=== PATIENT | female | born 1945 | race Caucasian/White ===

== ENCOUNTER 2020-11-19 07:57 | Outpatient (CLI) | payer MEDICARE ==
[2020-11-20 00:15] LABS: SARS-CoV-2 PCR by NAA Not Detected (NotDetected)
== END 2020-11-19 07:58 | disposition home or self-care (01) ==
LOC: LABBT 07:57
PROVIDERS: ATTEND Internal Medicine Gastroenterology
DX: Z01.812 Encounter for preprocedural laboratory examination (principal); K63.5 Polyp of colon; Z80.0 Family history of malignant neoplasm of digestive organs; Z20.822 Contact with and (suspected) exposure to COVID-19
CPT/HCPCS: U0003; U0005; 87635

== ENCOUNTER 2020-11-24 07:38 | Observation (INO) | payer MEDICARE ==
--- NOTE | 2020-11-24 05:48 | HP ---
HISTORY OF PRESENT ILLNESS: The patient is a 75-year-old female with a past history of colon polyp and family history of colon cancer. She is at high risk for colon cancer due to family history. Colonoscopy in was negative. Her bowel movements are constipated. No hematochezia. She comes for a colonoscopy because of family history of colon cancer and personal history of colon polyp. ALLERGIES: NONE. SOCIAL HISTORY: Does not smoke or drink alcohol. MEDICAL ILLNESSES: 1. Acid reflux. 2. Migraines. 3. Colon polyps. 4. Diverticular disease, past history of diverticulitis. PHYSICAL EXAMINATION: VITAL SIGNS: Pulse is 70, blood pressure is . HEENT: Conjunctivae clear. CARDIOVASCULAR: . LUNGS: Clear to auscultation. ABDOMEN: Soft. Abdomen is nontender. No organomegaly. No masses. Bowel sounds are normal. ADMITTING DIAGNOSIS: A 75-year-old female with family history of colon cancer and history of colon polyp. PLAN: Colonoscopy. Job ID: [id number]
[2020-11-24] MEDS ORDERED: PROPOFOL 200 MG/20 ML VIAL ONE (09:39)
--- NOTE | 2020-11-24 12:24 | OP ---
DATE OF PROCEDURE: 11/24/2020 OPERATIVE PROCEDURE: Colonoscopy with biopsy. PREOPERATIVE DIAGNOSES: A 75-year-old female with colon polyp, family history of colon cancer. She also complains of constipation, which has been progressive. The patient is undergoing colonoscopy. POSTOPERATIVE DIAGNOSES: 1. Very redundant, tortuous colon. 2. Sigmoid diverticular disease. 3. 6 mm sessile ascending colon polyp. DESCRIPTION OF PROCEDURE: The patient was placed on her left lateral position and was given sedation by Anesthesia Department. A rectal exam was done before scope was advanced into the rectum. No lesions felt on rectal exam. A Pentax video colonoscope was introduced into the rectum and advanced up to the cecum. The patient had a very redundant, tortuous, floppy sigmoid colon. Abdominal compression was used to advance the scope all the way to the cecum. The mucosa appears normal throughout the colon with normal vascular pattern. The appendiceal orifice, ileocecal valve, and cecum, no lesion. A 6 mm of sessile ascending colon polyp removed with biopsy forceps. The hepatic flexure, transverse colon, splenic flexure, descending colon, no lesion seen. The sigmoid colon showed scattered diverticula. The rectum showed hemorrhoids. DISCHARGE PLANNING: This is a 75-year-old female with history of colon polyp and family history of colon cancer. The patient has had increasing constipation in spite of taking high-fiber diet and Metamucil. The patient came for a colonoscopy and was found to have sigmoid diverticula and an ascending colon polyp. The patient had a very floppy, tortuous colon. DISCHARGE RECOMMENDATIONS: 1. The patient is advised to call me if she develops abdominal pain, hematochezia, or fever. 2. We will plan for abdominal CAT scan in the near future. 3. We will discuss with the patient about possible having sigmoid colectomy. Job ID: [id number]
--- NOTE | 2020-11-24 13:26 | CT ---
CT Abdomen Pelvis WO Con 11/24/2020 12:40 PM HISTORY: Abdominal pain post colonoscopy. Greater left-sided abdominal pain. COMPARISON: 07/31/2019 Technique: Multiple contiguous axial CT images are obtained through the abdomen and pelvis without IV contrast. Coronal reformats are provided. FINDINGS: This examination is limited for the evaluation of solid organs and vascular structures due to the lac k of intravenous contrast. Lower Chest: Minimal linear scarring versus atelectasis is present at the posteromedial right lung ba se. Lung bases are otherwise clear. Liver: Subcentimeter hypodense lesion is seen in the right hepatic lobe which is unchanged in size co mpared to prior study in 2019 as well as a study on 10/06/2015. Gallbladder: Surgically absent. Pancreas: Grossly normal nonenhanced CT appearance. Spleen: Grossly normal nonenhanced CT appearance. Adrenals: Grossly normal nonenhanced CT appearance. Kidneys and ureters: No renal or ureteral calculi are seen bilaterally. Urinary bladder: Urinary bladder has a normal CT appearance. Reproductive Organs: Evidence of hysterectomy. Lymph Nodes: No definite enlarged lymph nodes are seen. Bowel: Evidence of colonic diverticulosis. There is suggested thickening involving the park of the r ectum. There is adjacent inflammatory stranding in a perirectal location. No free fluid or free intraperitoneal gas is seen in this region. No dilated loops of small bowel are seen. A small hiatal hernia is identified. Appendix: Not visualized on this exam due to multiple adjacent unopacified structures. Peritoneum: There are punctate gas densities adjacent to the sigmoid colon which appear to demonstrat e adjacent rim of soft tissue density, and these gas densities are most likely attributable to tiny colonic diverticuli. No definitive free intraperitoneal gas is seen, and there is no free fluid or fl uid collection identified in the abdomen or pelvis. Vessels: Vascular calcifications are seen in the abdominal aorta and iliac arteries.. Abdominal Wall: within normal limits. Bones: Degenerative changes are seen in the spine. There is stable grade 1 anterolisthesis of L4 on L 5. Stable sclerotic density in the left iliac bone is seen with imaging characteristics most compatible with a prominent bone island. IMPRESSION: 1. Thickening of the park of the rectum with adjacent perirectal inflammatory stranding. No free int raperitoneal gas or free fluid is seen in this region. Findings could be related to proctitis. No definitive findings are seen to suggest bowel perforation at this time. However, close interval follo w-up is recommended to ensure resolution of the perirectal inflammatory stranding. 2. Colonic diverticulosis. 3. Small hiatal hernia. 4. Vascular calcifications. 5. Above findings were reviewed and discussed with Dr. Han on 11/24/2020 at 1306 hours.
[2020-11-24] MEDS ORDERED: cefTRIAXone\\ROCEPHIN 2 GM in Sodium Chloride 0.9% 100 ML IVPB SCH (13:30)
[2020-11-24] MEDS: metroNIDAZOLE 500 MG in Premix Bag 1 BAG IVPB SCH ×2 (15:36→21:10)
[2020-11-24 17:01] LABS: #Basophils 0.1 thou/uL (0.0-0.2); #Eosinphils 0.1 thou/uL (0.0-0.7); #Lymphocytes 1.8 thou/uL (1.20-3.40); #Monocytes 0.7 thou/uL (0.11-0.59); #Neutrophils 9.6 thou/uL (1.40-6.50); %Basophils 0.8 % (0.0-1.0); %Eosinophils 0.6 % (0.0-10.0); %Lymphocytes 14.6 % (21.0-51.0); %Monocytes 5.8 % (0.0-10.0); %Neutrophils 78.2 % (42.0-75.0); Hemoglobin 13.8 g/dL (12.0-16.0); Mean Corpuscular HGB CONC 33.2 g/dL (32.0-36.0); Mean Corpuscular Hemoglobin 31.3 pg (27.0-31.0); Mean Corpuscular Volume 94.3 fL (78.0-98.0); Mean Platelet Volume 8.1 fL (7.4-10.4); Platelet Count 335 thou/uL (130-400); RBC Distribution Width 11.4 % (11.5-14.5); White Blood Cell (WBC) Count 12.3 thou/uL (4.8-10.8)
[2020-11-24 17:21] LABS: Anion Gap 13 mmol/L (10-20); BUN (Urea Nitrogen) 8 mg/dL (9.8-20.1); Calc. Creatinine Clearance 73 mL/min (70-130); Calcium 8.9 mg/dL (7.8-10.44); Carbon Dioxide 27 mmol/L (23-31); Chloride 105 mmol/L (98-107); Glucose 94 mg/dL (83-110); Potassium 4.6 mmol/L (3.5-5.1); Sodium 140 mmol/L (136-145)
[2020-11-24 17:54] VITALS: BMI 25.9
[2020-11-24] MEDS ORDERED: HYDROcodone/Acetaminophen 5/325 mg Tablet PO PRN ×2 (18:07→18:18)
[2020-11-24] MEDS ORDERED: Ondansetron ODT 4 MG TAB PO PRN (18:19)
[2020-11-24] MEDS ORDERED: Calcium Carbonate 500 MG ChewTAB PO PRN (18:19)
[2020-11-24] MEDS ORDERED: Acetaminophen 325 MG TAB PO PRN (18:19)
[2020-11-24] MEDS ORDERED: Ondansetron PF 4 MG/2 ML Vial IVP PRN (18:19)
[2020-11-24] MEDS ORDERED: Lorazepam 1 MG TAB PO SCH (18:30)
--- NOTE | 2020-11-24 19:17 | CON ---
DATE OF CONSULTATION: PRIMARY CARE PHYSICIAN: Dr. Villela at [facility]. HISTORY OF PRESENT ILLNESS: The patient is a 75-year-old female with a past medical history significant for GERD, migraines, and diverticular disease, presents to the hospital for scheduled colonoscopy. The patient has known history of a colon polyp and constipation even while on high-fiber diet and Metamucil. She has a high risk for colon cancer, therefore she underwent a colonoscopy with Dr. Han. Results of the colonoscopy indicated an ascending colon polyp along with significant diverticular disease of the sigmoid colon. She also underwent a CT of her abdomen and pelvis, which had concerns for proctitis. The patient is admitted up to the floor for further evaluation, antibiotics, and we were consulted for medical management of her chronic conditions. At the present time, the patient appears in no acute distress. She reports some mild abdominal discomfort. She denies any nausea or vomiting. She does have some intermittent diarrhea. Denies hematochezia/melena. She denies any chest pain, heart palpitations, or lightheadedness. She denies any shortness of breath, cough, or wheezing. She has no history of DVT/PE. She denies any fever or chills. PAST MEDICAL HISTORY: 1. GERD. 2. Migraines. 3. Diverticular disease. 4. Diverticulitis. PAST SURGICAL HISTORY: 1. Cholecystectomy. 2. Appendectomy. 3. Hysterectomy. 4. Two salivary glands removed. SOCIAL HISTORY: The patient lives alone. She recently lost her . She has no history of smoking, illicit drug use, or heavy alcohol intake. She works at [employer]. She is independent in her ambulation. FAMILY HISTORY: Contributory for colon cancer. ALLERGIES: NO KNOWN DRUG ALLERGIES. HOME MEDICATIONS: 1. Pantoprazole 20 mg p.o. daily. 2. Hydrocodone 5/325 one tablet p.o. q.6 p.r.n. pain. REVIEW OF SYSTEMS: All review of systems are negative unless otherwise stated in the HPI. PHYSICAL EXAMINATION: VITAL SIGNS: Temperature 98.4, blood pressure 160/94, pulse 61, respirations 18, and she is 98% on room air. CONSTITUTIONAL: The patient is alert, oriented, no acute distress, appears comfortable, nontoxic in appearance. HEAD: Atraumatic, normocephalic. EYES: PERRLA. Extraocular muscles intact. ENT: Oropharynx is clear. Uvula midline. Moist mucous membranes. No oral lesions. NECK: Full range of motion. No cervical spinous tenderness. RESPIRATORY/CHEST: Respirations even, nonlabored. Clear to auscultation. No rhonchi, wheezes, or rales. CARDIAC: S1, S2 appreciated. No murmurs, rubs, or gallops. ABDOMEN: Soft, nontender, and nondistended. Active bowel sounds. No guarding. No rigidity. No rebound. BACK: Full range of motion. No cervical spinous tenderness. No CVA tenderness. UPPER EXTREMITIES: Full range of motion, normal strength, sensation intact. Palpable radial pulses. LOWER EXTREMITIES: Full range of motion, normal strength, sensation intact. Palpable pedal pulses. No swelling. NEUROLOGIC: She is A and O x4. GCS 15. PSYCHIATRIC: Denies SI or HI. A and O x4. LABS AND DIAGNOSTICS: WBCs 12.3, hemoglobin 13.8, hematocrit 41.5, platelets are 335. Sodium 140, potassium 4.6, chloride 105, carbon dioxide 27, BUN 8, creatinine 0.69, GFR 83, glucose 94, calcium 8.9. COVID is negative. CT of the abdomen and pelvis, impression: 1. Thickening of the park of the rectum and adjacent perirectal inflammatory stranding. No free intraperitoneal gas or free fluid is seen in this region. Findings could be related to proctitis. No definitive findings are seen to suggest bowel perforation at this time. 2. Colonic diverticulosis. 3. Small hiatal hernia. 4. Vascular calcifications. IMPRESSION: 1. Gastroesophageal reflux disease. 2. Migraines. 3. Diverticular disease. 4. Colon polyp. 5. Family history of colon cancer. 6. Chronic constipation. PLAN: Upon assessment, the patient appears stable. She is status post colonoscopy with Dr. Han. The patient still reports some mild abdominal discomfort, however, she is on clear liquid diet and tolerating it well. Her blood pressure is elevated, however, we believe this is related to her pain and her anxiety. She reports that she is very anxious because she is in the hospital and is worried she is going to get COVID. In terms of her GERD, we will restart her home PPI. In terms of her abdominal pain, we will restart her home medication of [place]. For anxiety, the patient has taken lorazepam 2 mg in the past. We will administer a one-time dose of that this evening. SCDs for DVT prophylaxis. Protonix for GI prophylaxis. Code status is full code. Discussed the case with my attending physician, Dr. Boyce, who agrees with the plan of care. Job ID: [id number]
[2020-11-25] MEDS: metroNIDAZOLE 500 MG in Premix Bag 1 BAG IVPB SCH (05:24)
[2020-11-25 06:19] LABS: #Basophils 0.1 thou/uL (0.0-0.2); #Eosinphils 0.2 thou/uL (0.0-0.7); #Lymphocytes 2.2 thou/uL (1.20-3.40); #Monocytes 0.5 thou/uL (0.11-0.59); #Neutrophils 3.4 thou/uL (1.40-6.50); %Basophils 1.4 % (0.0-1.0); %Eosinophils 2.4 % (0.0-10.0); %Lymphocytes 35.1 % (21.0-51.0); %Monocytes 8.3 % (0.0-10.0); %Neutrophils 52.9 % (42.0-75.0); Hemoglobin 12.4 g/dL (12.0-16.0); Mean Corpuscular HGB CONC 33.2 g/dL (32.0-36.0); Mean Corpuscular Hemoglobin 31.2 pg (27.0-31.0); Mean Corpuscular Volume 93.9 fL (78.0-98.0); Mean Platelet Volume 8.3 fL (7.4-10.4); Platelet Count 312 thou/uL (130-400); RBC Distribution Width 11.3 % (11.5-14.5); Red Blood Cell (RBC) Count 3.99 mill/uL (4.20-5.40); White Blood Cell (WBC) Count 6.4 thou/uL (4.8-10.8)
[2020-11-25 06:33] LABS: Anion Gap 12 mmol/L (10-20); BUN (Urea Nitrogen) 8 mg/dL (9.8-20.1); Calc. Creatinine Clearance 74 mL/min (70-130); Calcium 8.4 mg/dL (7.8-10.44); Carbon Dioxide 27 mmol/L (23-31); Chloride 104 mmol/L (98-107); Glucose 88 mg/dL (83-110); Potassium 3.6 mmol/L (3.5-5.1); Sodium 139 mmol/L (136-145)
--- NOTE | 2020-11-25 06:54 | PRG ---
DATE OF SERVICE: 11/24/2020 TIME: 1 p.m. SUBJECTIVE: This is a 75-year-old female with recurrent diverticulitis, history of colon polyp and also family history of colon cancer. She underwent a colonoscopy this morning and was found to have scattered diverticula in sigmoid colon area. Also very redundant, tortuous colon. A small polyp taken from ascending colon. The patient was complaining of worsening abdominal pain and abdominal CAT scan. The abdominal CAT scan was reviewed with Dr. Miller. CAT scan does not show any free air but does show thickening of the lower sigmoid colon area and also rectal wall. No free air seen. The patient was seen again the day of surgery and she appears very comfortable. Her pain seems to be more toward the back in the left lower quadrant. OBJECTIVE: GENERAL: She appears comfortable. VITAL SIGNS: Her vital signs are stable. HEART: Normal heart sounds. LUNGS: Clear to auscultation. ABDOMEN: Soft and nondistended. Abdomen is mildly tender on deep palpation of left lower quadrant. Overall, the exam is very benign. IMPRESSION: Post colonoscopy abdominal pain with no free air on abdominal CAT scan. She has no peritoneal signs. Abdomen is nondistended. Not sure of the etiology of the pain. PLAN: I did talk to Ms. Pozo and advised her to spend overnight in the hospital for observation. We will keep her on clear liquid diet. We will start her on IV Rocephin and Flagyl. We will make further recommendation depending upon the hospital course. Job ID: [id number]
[2020-11-25] MEDS ORDERED: Loperamide HCl 2 MG CAP PO PRN (08:34)
[2020-11-25] MEDS ORDERED: Cepastat Lozenges 1 LOZ PO PRN (08:34)
[2020-11-25] MEDS ORDERED: Sodium Chloride 0.65% Nasal 44 ML BOT EA NARE PRN (08:34)
[2020-11-25] MEDS ORDERED: Loratadine 10 MG TAB PO PRN (08:34)
[2020-11-25] MEDS ORDERED: Zolpidem Tartrate 5 MG TAB PO PRN (08:34)
[2020-11-25] MEDS ORDERED: Bisacodyl 10 MG SUPP PR PRN (08:34)
[2020-11-25] MEDS ORDERED: GUAIFENESIN SF SOLN 200 MG/10 ML UDCUP PO PRN (08:34)
[2020-11-25] MEDS ORDERED: Senokot S 8.6-50 MG TAB PO PRN (08:34)
[2020-11-25] MEDS ORDERED: hydrALAZINE 20 MG/ML VIAL SLOW IVP PRN (08:34)
--- NOTE | 2020-11-25 10:08 | PRG ---
DATE OF SERVICE: 11/25/2020 SUBJECTIVE: This is a 75-year-old female with family history of colon cancer and personal history of colon polyp. She came for a colonoscopy yesterday and underwent colonoscopy and was found to have scattered sigmoid diverticulosis. The patient also has abdominal pain, which lasts for several hours. She underwent a CAT scan of abdomen, which revealed no free air and no definite pathology seen. She had some thickening of the lower sigmoid colon area and rectum. She is on antibiotics. She has actually done well overnight. Abdominal pain is markedly improved. No fever. No nausea or vomiting. She had a stool today and the stool appears normal. OBJECTIVE: GENERAL: Appears comfortable. VITAL SIGNS: Stable. Afebrile, pulse is 68, and blood pressure 124/60. CARDIOVASCULAR SYSTEM: Normal heart sounds. LUNGS: Clear to auscultation. ABDOMEN: Soft and nondistended. Abdomen is actually nontender and she has moderate pain over the left lumbar area, which is most likely musculoskeletal. LABORATORY DATA: Labs are normal today. RECOMMENDATIONS: We will discharge the patient home today on Cipro 500 p.o. twice a day for 7 days and Flagyl 500 mg three times a day for 7 days. The patient will come back to see me in 1 weeks' time. Job ID: [id number]
[2020-11-25 12:15] VITALS: BP 150/74; TEMP 98.2
--- NOTE | 2020-11-25 12:15 | PDOC.DS.DS ---
Provider Date of Admission: 11/24/20 15:03 Date of Discharge: 11/25/20 Admitting Provider: Richa Han MD Consultations: Gastroentrology Primary Care Physician: WOJCIECH CARR MD Course Hospital Course: 75-year-old female who was admitted by Dr. Flannery, who was primary during this hospital, patient was admitted for colonoscopy, patient has history of colon polyps, patient also has family history of colon cancer, patient underwent colonoscopy during this admission, colonoscopy showed very tortuous colon, sigmoid diverticular disease, 6 mm ascending colon polyp, patient also had CT abdomen and pelvis during this admission, which showed findings suggestive of proctitis, patient was given empiric antibiotic therapy with Cipro and Flagyl and patient will follow up with GI for follow-up on biopsy of the polyp. Resuscitation Status: 11/24/20 18:19 Resuscitation Status Routine Co-Sign Provider: Resuscitation Status: FULL: Full Resuscitation Discussed with: patient Lab Results: 11/25/20 05:41 11/25/20 05:41 Abnormal Lab Results - Last 48 hrs 11/24/20 16:51: BUN 8 L 11/24/20 16:51: WBC 12.3 H, MCH 31.3 H, RDW 11.4 L, Neutrophils % 78.2 H, Lymphocytes % 14.6 L, Neutrophils # 9.6 H, Monocytes # 0.7 H 11/25/20 05:41: BUN 8 L 11/25/20 05:41: RBC 3.99 L, MCH 31.2 H, RDW 11.3 L, Basophils % 1.4 H Vitals: Vital Signs (12 hours) Temp Pulse Resp BP Pulse Ox 11/25/20 08:00 98.3 F 58 L 20 135/78 97 11/25/20 04:30 97.4 F L 68 18 124/62 97 Weight Weight 151 lb Physical Exam: The patient was seen and examined on the day of discharge. General Appearance: NAD, awake alert Eye: PERRL, anicteric sclera ENT: normocephalic atraumatic, no oropharyngeal lesions Neck: supple, symmetric, no JVD, no thyromegaly Respiratory: CTAB, no wheezes, no rales, no ronchi Cardiovascular: RRR, no murmur, no gallops, no rubs Gastrointestinal: soft, non-tender, non-distended, normal bowel sounds Extremities: no cyanosis, no clubbing, no edema Skin: normal turgor, no lesions Neurological: no focal deficits Musculoskeletal: normal tone, normal strength PSYCH: normal affect, normal behavior Problem (1) Proctitis Code(s): K62.89 - OTHER SPECIFIED DISEASES OF ANUS AND RECTUM Status: Acute (2) Sigmoid diverticulosis Code(s): K57.30 - DVRTCLOS OF LG INT W/O PERFORATION OR ABSCESS W/O BLEEDING Status: Chronic (3) Polyp of colon Code(s): K63.5 - POLYP OF COLON Status: Chronic Plan Prescriptions: metroNIDAZOLE [Flagyl] 500 mg PO Q8HR #45 tab Ciprofloxacin [Cipro] 500 mg PO Q12HR #30 tab Home Medications: Medication Instructions Recorded Confirmed Type HYDROcodone Bit/APAP 5/325 [[place]] 1 tab PO Q6HR PRN 03/16/15 11/23/20 History Pantoprazole Sodium 40 mg PO DAILY 03/16/15 11/24/20 History LORazepam [Lorazepam] 2 tab PO HS 11/24/20 11/24/20 History Ciprofloxacin [Cipro] 500 mg PO Q12HR #30 tab 11/25/20 Rx metroNIDAZOLE [Flagyl] 500 mg PO Q8HR #45 tab 11/25/20 Rx Allergies: No Known Allergies Allergy (Verified 11/23/20 11:31) Activity:: Activity as Tolerated Nourishment:: Heart Healthy Diet Therapies:: Not Applicable Equipment/Supplies:: Not Applicable IV Therapy:: Not Applicable Referrals: WOJCIECH CARR MD [Primary Care Provider] - Richa Han MD [Active] - (1 WEEK CALL FOR APPT ) Disposition: HOME Quality CORE MEASURES:: N/A
== END 2020-11-25 12:16 | disposition home or self-care (01) ==
LOC: SDC 07:38 → T4-A 15:03
PROVIDERS: ADMIT Internal Medicine Gastroenterology; ATTEND Internal Medicine Gastroenterology
PROC: 0DBK8ZX Excision of Ascending Colon, Via Natural or Artificial Opening Endoscopic, Diagnostic (ICD-10-PCS; principal; 2020-11-24)
DX: Z12.11 Encounter for screening for malignant neoplasm of colon (principal); D12.2 Benign neoplasm of ascending colon; K57.30 Diverticulosis of large intestine without perforation or abscess without bleeding; K64.9 Unspecified hemorrhoids; K62.89 Other specified diseases of anus and rectum; K44.9 Diaphragmatic hernia without obstruction or gangrene; K21.9 Gastro-esophageal reflux disease without esophagitis; K59.09 Other constipation; G43.909 Migraine, unspecified, not intractable, without status migrainosus; Z80.0 Family history of malignant neoplasm of digestive organs; Z86.010 Personal history of colon polyps
CPT/HCPCS: 36415; 74176; 80048; 85025; 88305; 96360; 96374; 96376; G0378; J0696; J2704; J3490